=== PATIENT | male | born 1990 | race Caucasian/White ===

== ENCOUNTER 2019-04-17 19:14 | Emergency (ER) | payer OTHER ==
[2019-04-17 19:32] VITALS: BP 141/89
--- NOTE | 2019-04-17 20:34 | UC ---
Throat Pain/Nasal Ryder HPI - HPI Summary HPI Summary: Onset today of left-sided sore throat and pain with swallowing. Saw a white spot on his left tonsil. No fever. No cough or congestion or other URI symptoms. - History of Current Complaint Chief Complaint: UCGeneralIllness Stated Complaint: WHITE SORE ON THROAT Time Seen by Provider: 04/17/19 19:46 Hx Obtained From: Patient Onset/Duration: Gradual Onset, Lasting Hours, Still Present Severity: Mild Pain Intensity: 2 Pain Scale Used: 0-10 Numeric Cough: None Associated Signs & Symptoms: Positive: Negative - Allergies/Home Medications Allergies/Adverse Reactions: Allergies Allergy/AdvReac Type Severity Reaction Status Date / Time No Known Allergies Allergy Verified 04/17/19 19:32 Home Medications: Home Medications NK [No Home Medications Reported] 04/17/19 [History Confirmed 04/17/19] PMH/Surg Hx/FS Hx/Imm Hx Previously Healthy: Yes - Surgical History Surgical History: Yes Surgery Procedure, Year, and Place: right knee surgery as child - Family History Known Family History: Positive: Non-Contributory - Social History Alcohol Use: Weekly Substance Use Type: None Smoking Status (MU): Heavy Every Day Tobacco Smoker Household Exposure Type: Cigarettes Review of Systems All Other Systems Reviewed And Are Negative: Yes Constitutional: Positive: Negative ENT: Positive: Sore Throat Respiratory: Positive: Negative Cardiovascular: Positive: Negative Gastrointestinal: Positive: Negative Physical Exam Triage Information Reviewed: Yes Appearance: Well-Appearing, No Pain Distress, Well-Nourished Vital Signs: Initial Vital Signs Temp 98.2 F 04/17/19 19:29 Pulse 80 04/17/19 19:29 Resp 17 04/17/19 19:29 BP 141/89 04/17/19 19:29 Pulse Ox 100 04/17/19 19:29 Laboratory Tests 04/17/19 19:59 Group A Strep Rapid Negative Vital Signs Reviewed: Yes Eyes: Positive: Conjunctiva Clear ENT: Positive: Hearing grossly normal, Pharynx normal, TMs normal, Other - LEFT TONSIL WITH SHALLOW WHITE ULCERATION Neck: Positive: Supple, Nontender, No Lymphadenopathy Respiratory Exam: Normal Cardiovascular Exam: Normal Abdomen Description: Positive: Soft Musculoskeletal: Positive: No Edema Neurological: Positive: Alert Psychological: Positive: Age Appropriate Behavior Skin: Negative: Rashes Throat Pain/Nasal Course/Dx - Course Course Of Treatment: STREP TEST NEGATIVE. WHITE SPOT ON LEFT TONSIL APPEARS TO BE SHALLOW ULCERATION. ENCOURAGED HYDRATION AND COUNSELED ON GOOD ORAL HYGIENE. LESION SHOULD RESOLVE ON ITS OWN OVER THE NEXT COUPLE OF WEEKS. IF IT DOES NOT I HAVE ADVISED PATIENT TO FOLLOW UP WITH ENT. - Differential Dx/Diagnosis Provider Diagnosis: Aphthous ulcer of tonsil Discharge - Sign-Out/Discharge Documenting (check all that apply): Patient Departure All imaging exams completed and their final reports reviewed: No Studies - Discharge Plan Condition: Stable Disposition: HOME Patient Education Materials: Canker Sores (ED) Referrals: Faye Mcgovern MD [Primary Care Provider] - If Needed Additional Instructions: STREP TEST NEGATIVE. THE WHITE SPOT ON YOUR LEFT TONSIL APPEARS TO BE A SUPERFICIAL ULCERATION. STAY WELL-HYDRATED. USE SALT WATER GARGLES AND MOUTHWASH. THE LESION SHOULD RESOLVE ON ITS OWN IN THE NEXT WEEK OR 2. FOLLOW- UP WITH YOUR PCP OR ENT IF IT IS NOT RESOLVING EXPECTED WITH TIME. [facility] IN [place] [facility] CALLES AND [facility] [address] [facility] [phone] - Billing Disposition and Condition Condition: STABLE Disposition: Home
== END 2019-04-17 20:30 | disposition home or self-care (01) ==
LOC: UCEAST 19:14
DX: J35.8 Other chronic diseases of tonsils and adenoids (principal)
CPT/HCPCS: 87651; 99211; G0463